=== PATIENT | male | born 1975 | race Caucasian/White ===

== ENCOUNTER 2018-04-17 20:36 | Emergency (ER) | payer BC ==
[~2018-04-17 20:36] MED LIST: ADVIL 200MG TA200 MG PO; CEPHALEXIN500 M1 PO; COMPAZINE 110 MG/TAB PO; LEVAQUIN 5500 MG/TAB PO; LORTAB 5/500 501 TAB; VITAMIN C500 MG PO; ZANTAC 150150 MG PO
== END 2018-04-17 21:15 | disposition left against medical advice (07) ==
LOC: COL.ER 20:36
DX: Z72.9 Problem related to lifestyle, unspecified (principal)